=== PATIENT | female | born 1995 | race Caucasian/White ===

== ENCOUNTER 2021-03-23 01:53 | Emergency (ER) | payer BC ==
[2021-03-23] MEDS ORDERED: Sodium Chloride 0.9% 2.5 ML Syringe FLUSH PRN (02:27)
[2021-03-23] MEDS ORDERED: Sodium Chloride 0.9% 10 ML Syringe FLUSH PRN (02:27)
[2021-03-23] MEDS ORDERED: Sodium Chloride 0.9% 1,000 ML IV ONE (02:28)
--- NOTE | 2021-03-23 02:33 | EDM.PDOC ---
ED HPI GENERAL MEDICAL PROBLEM - General Chief Complaint: [employer]IT[employer] Problem Stated Complaint: MISCARRIAGE Time Seen by Provider: 03/23/21 02:12 - History of Present Illness INITIAL COMMENTS - FREE TEXT/NARRATIVE: History of present illness: [] About 2023 had a 2-day menstrual period which is care for her. She had a last normal 5 to 7-day. Near the end of December. She had an ultrasound the first week of January that showed gestational sac with no heartbeat. She had hCG levels which I can see in the chart 35,000 697 on the third 08 February. 93,062 on 24 February. 84,171 on 27 February. 12,811 on 14 March. For the last 2 nights she is bleeding rather heavily heavier than a period with clots. Today she is dizzy and feels weak. She has crampy abdominal pain that is moderately severe and intermittent. The patient is a Ab0. Ultrasound and blood counts are not available to me nor is her blood type. I have checked my record in the computer [employer]. 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 Review of systems: As per history of present illness and below otherwise all systems reviewed and negative. Past medical history: As per history of present illness and as reviewed below otherwise noncontributory. Surgical history: As per history of present illness and as reviewed below otherwise noncontributory. Social history: No reported history of drug or alcohol abuse. Family history: As per history of present illness and as reviewed below otherwise noncontributory. Physical exam: Constitutional - well developed, well-nourished and in no acute distress HEENT - normocephalic, no evidence of trauma - external nose and mouth normal - no mass in neck and no JVD - mucosae moist EYES - full EOM, PERRL, no icterus - no evidence of inflammation, injection, or drainage Respiratory - no respiratory distress, equal bilateral expansion, lungs clear to auscultation and no abnormal lung sounds Cardiovascular - Regular Rhythm with S1 and S2 appreciated and no murmur, gallop or rub. GI - abdomen soft without distension or organomegaly -tenderness suprapubic area and in the right lower quadrant. Musculoskeletal no gross deformity of long bones or joints - no tenderness, swelling or edema Neurologic - Alert and oriented times four - CN II-XII grossly intact - motor sensory and coordination symmetrically normal Psychiatric - appropriate mood and affect with normal thought content Hematologic - No petechiae or purpura - mucosa appropriate color and sclera not pale - normal nail bed color and refill Integument - no rash or evidence of trauma - normal turgor Diagnostics: [] Therapeutics: [] Impression: [] Plan: [] Definitive disposition and diagnosis as appropriate pending reevaluation and review of above. Lower Abdomen Pain Score (Numeric/FACES): 2 - Related Data Allergies Allergy/AdvReac Type Severity Reaction Status Date / Time codeine Allergy Hives Verified 03/23/21 02:07 Home Meds: Home Meds . [No Known Home Meds] 03/23/21 [History] Past Medical History - Past Health History Medical/Surgical History: Denies Medical/Surgical History HEENT History: Reports: None Cardiovascular History: Reports: None Respiratory History: Reports: None Gastrointestinal History: Reports: None Genitourinary History: Reports: None [employer]CHIT[employer] History: Reports: None Musculoskeletal History: Reports: None Neurological History: Reports: None Psychiatric History: Reports: None Endocrine/Metabolic History: Reports: None Hematologic History: Reports: None Immunologic History: Reports: None Oncologic (Cancer) History: Reports: None Dermatologic History: Reports: None - Past Surgical History Head Surgeries/Procedures: Reports: None HEENT Surgical History: Reports: None, Oral Surgery Cardiovascular Surgical History: Reports: None Endocrine Surgical History: Reports: None Musculoskeletal Surgical History: Reports: None, Other (See Below) Other Musculoskeletal Surgeries/Procedures:: closed elbow reduction Dermatological Surgical History: Reports: None Social & Family History - Family History Family Medical History: No Pertinent Family History - Caffeine Use Caffeine Use: Reports: Energy Drinks - Recreational Drug Use Recreational Drug Use: Yes Drug Use in Last 12 Months: Yes Recreational Drug Type: Reports: Marijuana/Hashish Recreational Drug Use Frequency: Socially ED ROS GENERAL - Review of Systems Review Of Systems: Comprehensive ROS is negative, except as noted in HPI. ED EXAM, GENERAL - Physical Exam Exam: See Below Free Text/Narrative:: my physical exam is in the HPI Course - Vital Signs Text/Narrative:: Patient's pain got little better in the emergency department. Patient has an ultrasound that shows that she has a fluid collection the size of an 8-week with no pole or sac and it is in the endocervical canal. Last Recorded V/S: Last Vital Signs Temp 36.2 C 03/23/21 02:07 Pulse 111 H 03/23/21 02:07 Resp 17 03/23/21 02:07 BP 110/60 03/23/21 02:07 Pulse Ox - Orders/Labs/Meds Orders: Active Orders 24 hr Category Date Time Status Sodium Chloride 0.9% [Saline Flush] Med 03/23/21 02:27 Active 10 ml FLUSH ASDIRECTED PRN Sodium Chloride 0.9% [Saline Flush] Med 03/23/21 02:27 Active 2.5 ml FLUSH ASDIRECTED PRN Saline Lock Insert [OM.PC] Stat Oth 03/23/21 02:27 Ordered Medication Orders Sodium Chloride (Sodium Chloride 0.9% 10 Ml Syringe) 10 ml FLUSH ASDIRECTED PRN PRN Reason: Keep Vein Open Last Admin: 03/23/21 02:43 Dose: 10 ml Documented by: CHOLO Sodium Chloride (Sodium Chloride 0.9% 2.5 Ml Syringe) 2.5 ml FLUSH ASDIRECTED PRN PRN Reason: Keep Vein Open Last Admin: 03/23/21 02:43 Dose: 2.5 ml Documented by: CHOLO Labs: Laboratory Tests 03/23/21 03/23/21 03/23/21 Range/Units 02:40 02:40 02:47 WBC 14.18 H (4.0-11.0) K/uL RBC 4.30 (4.30-5.90) M/uL Hgb 11.9 L (12.0-16.0) g/dL Hct 35.5 L (36.0-46.0) % MCV 82.6 (80.0-98.0) fL MCH 27.7 (27.0-32.0) pg MCHC 33.5 (31.0-37.0) g/dL RDW Std Deviation 39.9 (28.0-62.0) fl RDW Coeff of Nicolasa 13 (11.0-15.0) % Plt Count 261 (150-400) K/uL MPV 9.40 (7.40-12.00) fL Neut % (Auto) 67.5 (48.0-80.0) % Lymph % (Auto) 22.4 (16.0-40.0) % [place] % (Auto) 8.7 (0.0-15.0) % Eos % (Auto) 1.3 (0.0-7.0) % Baso % (Auto) 0.1 (0.0-1.5) % Neut # (Auto) 9.6 H (1.4-5.7) K/uL Lymph # (Auto) 3.2 H (0.6-2.4) K/uL [place] # (Auto) 1.2 H (0.0-0.8) K/uL Eos # (Auto) 0.2 (0.0-0.7) K/uL Baso # (Auto) 0.0 (0.0-0.1) K/uL Nucleated RBC % 0.0 /100WBC Nucleated RBCs # 0 K/uL Sodium 140 (136-145) mmol/L Potassium 3.6 (3.5-5.1) mmol/L Chloride 106 (98-107) mmol/L Carbon Dioxide 22.7 (21.0-32.0) mmol/L BUN 11 (7.0-18.0) mg/dL Creatinine 0.6 (0.6-1.0) mg/dL Est Cr Clr Drug Dosing 141.81 mL/min Estimated GFR (MDRD) > 60.0 ml/min Glucose 112 H (74-106) mg/dL Calcium 8.5 (8.5-10.1) mg/dL HCG, Quant 1165.0 mIU/mL Blood Type O POSITIVE Antibody Screen NEGATIVE Meds: Medications Generic Name Dose Route Start Last Admin Trade Name Freq PRN Reason Stop Dose Admin Sodium Chloride 10 ml 03/23/21 02:27 03/23/21 02:43 Sodium Chloride 0.9% 10 Ml Syringe FLUSH 10 ml ASDIRECTED PRN Administration Keep Vein Open Sodium Chloride 2.5 ml 03/23/21 02:27 03/23/21 02:43 Sodium Chloride 0.9% 2.5 Ml Syringe FLUSH 2.5 ml ASDIRECTED PRN Administration Keep Vein Open Discontinued Medications Generic Name Dose Route Start Last Admin Trade Name Freq PRN Reason Stop Dose Admin Sodium Chloride 1,000 mls @ 500 mls/hr 03/23/21 02:28 03/23/21 02:43 Normal Saline IV 03/23/21 04:27 500 mls/hr .Bolus ONE Administration Departure - Departure Time of Disposition: 04:37 Disposition: Home, Self-Care 01 Condition: Good Clinical Impression: Incomplete - Discharge Information Instructions: Incomplete Miscarriage Referrals: Elif Friedman CNM [Primary Care Provider] - Forms: ED Department Discharge Additional Instructions: Your blood type is O+. Return or contact your cornetist if you have a high fever, bleeding to the point of feeling you will pass out, heavy bleeding, unbearable pain. [facility] [address] [place] [id number] [facility] [address] [place] [id number] The following information is given to patients seen in the emergency department who are being discharged to home. This information is to outline your options for follow-up care. We provide all patients seen in our emergency department with a follow-up referral. The need for follow-up, as well as the timing and circumstances, are variable depending upon the specifics of your emergency department visit. If you don't have a primary care physician on staff, we will provide you with a referral. We always advise you to contact your personal physician following an emergency department visit to inform them of the circumstance of the visit and for follow-up with them and/or the need for any referrals to a consulting specialist. The emergency department will also refer you to a specialist when appropriate. This referral assures that you have the opportunity for follow-up care with a specialist. All of these measure are taken in an effort to provide you with optimal care, which includes your follow-up. Under all circumstances we always encourage you to contact your private physician who remains a resource for coordinating your care. When calling for follow-up care, please make the office aware that this follow-up is from your recent emergency room visit. If for any reason you are refused follow-up, please contact the [facility] Emergency Department at and asked to speak to the emergency department charge nurse. Sepsis Event Note (ED) - Evaluation Sepsis Screening Result: No Definite Risk - Focused Exam Vital Signs: Vital Signs Temp Pulse Resp BP 03/23/21 02:07 36.2 C 111 H 17 110/60 - My Orders Last 24 Hours: My Active Orders 03/23/21 02:27 Sodium Chloride 0.9% [Saline Flush] 10 ml FLUSH ASDIRECTED PRN Sodium Chloride 0.9% [Saline Flush] 2.5 ml FLUSH ASDIRECTED PRN Saline Lock Insert [OM.PC] Stat - Assessment/Plan Last 24 Hours: My Active Orders 03/23/21 02:27 Sodium Chloride 0.9% [Saline Flush] 10 ml FLUSH ASDIRECTED PRN Sodium Chloride 0.9% [Saline Flush] 2.5 ml FLUSH ASDIRECTED PRN Saline Lock Insert [OM.PC] Stat
[2021-03-23 03:47] LABS: BLOOD UREA NITROGEN,BUN 11 mg/dL (7.0-18.0); CARBON DIOXIDE,CO2 22.7 mmol/L (21.0-32.0); CHLORIDE,CL 106 mmol/L (98-107); GLUCOSE RANDOM 112 mg/dL (74-106); POTASSIUM,K 3.6 mmol/L (3.5-5.1); SODIUM,NA 140 mmol/L (136-145)
--- NOTE | 2021-03-23 03:57 | US ---
INDICATION: Vaginal bleeding TECHNIQUE: Ultrasound OB pelvis transvaginal. Real time chinchilla scale imaging of the pelvis was performed. COMPARISON: None FINDINGS: Gestational Sac: No definite intrauterine gestational sac or pole is identified. There is an oblong anechoic fluid collection present within the endocervical canal. It measures 3.2 x 0.9 cm. Uterus: 11 x 6.8 x 6.7 cm. The visualized myometrium appears normal. The endometrium is thickened and heterogeneous in appearance, measuring 20 mm. Pelvis: The ovaries are of normal size. Arterial blood flow seen within both ovaries. No adnexal masses are identified. Trace pelvic ascites noted. IMPRESSION: 1. There is an oblong anechoic fluid collection present within the endocervical canal. If this represents a gestational sac, an impending spontaneous should be considered. 2. Clinical and imaging follow up is recommended. Dictated by Bala Jenkins MD @ 03/23/2021 3:56:26 AM Dictated by: Bala Jenkins MD @ 03/23/2021 03:56:38 (Electronically Signed)
[2021-03-23 04:42] VITALS: BP 134/78; PULSE 87
== END 2021-03-23 04:42 | disposition home or self-care (01) ==
LOC: MW.ED 01:53
DX: O03.4 Incomplete spontaneous abortion without complication (principal); Z88.5 Allergy status to narcotic agent
CPT/HCPCS: 36415; 76801; 80048; 84702; 85025; 86850; 86900; 86901; 99284; J7030; 99283

== ENCOUNTER 2023-11-16 01:56 | Inpatient (IN) | payer BC ==
[2023-11-16] MEDS ORDERED: Misoprostol 200 MCG Tab PO PRN (03:33)
[2023-11-16] MEDS ORDERED: Lidocaine 1% 50 ML MDV INJECT PRN (03:33)
[2023-11-16] MEDS ORDERED: Sodium Chloride 0.9% 10 ML Syringe FLUSH PRN (03:33)
[2023-11-16] MEDS ORDERED: Terbutaline 1 MG/ML SDV SUBCUT PRN (03:33)
[2023-11-16] MEDS ORDERED: Carboprost Tromethamine 250 MCG/1 mL Vial IM PRN (03:33)
[2023-11-16] MEDS ORDERED: Sodium Chloride 0.9% 20 ML SDV IV PRN (03:33)
[2023-11-16] MEDS ORDERED: Methylergonovine 0.2 MG/1 ML Amp IM PRN (03:33)
[2023-11-16] MEDS ORDERED: Sodium Chloride 0.9% 2.5 ML Syringe FLUSH PRN (03:33)
[2023-11-16] MEDS ORDERED: Water For Irrigation,Sterile 1,000 ML Container IRR PRN (03:33)
[2023-11-16] MEDS ORDERED: Misoprostol 25 MCG (1/4 of 100 MCG) Tab VAG PRN ×2 (03:33)
[2023-11-16] MEDS ORDERED: Tranexamic Acid IN NACL,ISO-OS 1,000 MG in Premix Bag 1 BAG IV PRN ×2 (03:33)
[2023-11-16] MEDS ORDERED: Nalbuphine 10 MG/0.5 ML Syringe IVPUSH PRN (03:33)
[2023-11-16] MEDS ORDERED: Ondansetron 4 MG/2 ML SDV IVPUSH PRN (03:39)
[2023-11-16] MEDS ORDERED: Oxytocin/0.9 % Sodium Chloride 30 UNIT/500 ML BAG IV SCH ×2 (03:45→17:30)
[2023-11-16] MEDS: Lactated Ringers 1,000 ML IV SCH ×3 (04:16→14:03)
[2023-11-16 05:00] LABS: HEMATOCRIT 37.1 % (37.0-47.0); HEMOGLOBIN 12.7 g/dL (12.0-16.0); MEAN CORPUSCULAR HEMOGLOBIN 28.1 pg (28.0-32.0); MEAN CORPUSCULAR HGB CONC 34.2 g/dL (32.0-36.0); MEAN CORPUSCULAR VOLUME 82.1 fL (83.0-99.0); MEAN PLATELET VOLUME 10.7 fL (9.4-12.3); PLATELET COUNT,PLT 258 K/uL (150-400); RED BLOOD CELL COUNT 4.52 M/uL (4.10-5.30)
[2023-11-16] MEDS ORDERED: Ropivacaine HCl/PF 200 ML ONE (13:36)
[2023-11-16] MEDS ORDERED: ePHEDrine 50 MG/ML SDV IVPUSH PRN ×2 (15:21)
[2023-11-16] MEDS ORDERED: Phenylephrine HCl 0.5 MG/5 ML AMP IVPUSH PRN (15:21)
[2023-11-16] MEDS ORDERED: Ropivacaine HCl/PF 400 MG in Premix Bag 1 BAG EPIDUR SCH (15:30)
[2023-11-17] MEDS ORDERED: Lanolin 100% Cream 7 GM Tube TOP PRN (00:06)
[2023-11-17] MEDS ORDERED: Benzocaine/Menthol 20%-0.5% Spray 78 GM Cannister TOP PRN (00:06)
[2023-11-17] MEDS ORDERED: Witch Hazel Medicated Pads 40/Jar TOP PRN (00:06)
[2023-11-17] MEDS: Acetaminophen 500 MG Tab PO PRN ×3 (01:08→13:30)
[2023-11-17] MEDS: Ibuprofen 800 MG Tab PO PRN ×2 (04:43→11:33)
[2023-11-17 05:55] LABS: HEMATOCRIT 34.5 % (37.0-47.0); HEMOGLOBIN 12.1 g/dL (12.0-16.0)
[2023-11-17] MEDS: Docusate Sodium 100 MG Cap PO PRN (18:21)
[2023-11-18] MEDS: Docusate Sodium 100 MG Cap PO PRN (08:04)
[2023-11-18] MEDS: Ibuprofen 800 MG Tab PO PRN (14:11)
[2023-11-18 16:11] VITALS: BP 122/65; PULSE 82
== END 2023-11-18 17:50 | disposition home or self-care (01) | DRG 560 ==
LOC: MW.OBCHECK 01:56 → MW.OB 01:57 → MW.OBCHECK 22:22 → MW.OB 22:31
PROVIDERS: ADMIT Obstetrics & Gynecology; ATTEND Obstetrics & Gynecology Obstetrics
PROC: 10E0XZZ Delivery of Products of Conception, External Approach (ICD-10-PCS; principal; 2023-11-16)
PROC: 3E0P7VZ Introduction of Hormone into Female Reproductive, Via Natural or Artificial Opening (ICD-10-PCS; 2023-11-16)
PROC: 3E0R3BZ Introduction of Anesthetic Agent into Spinal Canal, Percutaneous Approach (ICD-10-PCS; 2023-11-16)
PROC: 00HU33Z Insertion of Infusion Device into Spinal Canal, Percutaneous Approach (ICD-10-PCS; 2023-11-16)
PROC: 0HQ9XZZ Repair Perineum Skin, External Approach (ICD-10-PCS; 2023-11-16)
DX: O42.02 Full-term premature rupture of membranes, onset of labor within 24 hours of rupture (principal); O70.0 First degree perineal laceration during delivery; Z37.0 Single live birth; Z3A.38 38 weeks gestation of pregnancy
CPT/HCPCS: 36415; 51702; 59025; 59409; 84112; 85014; 85018; 85027; 86592; 86850; 86900; 86901; A9270-GY; J2300; J2590; J2795; J7120

== ENCOUNTER 2025-05-14 22:42 | Inpatient (IN) | payer BC ==
[2025-05-15] MEDS ORDERED: Sodium Chloride 0.9% 2.5 ML Syringe FLUSH PRN (01:24)
[2025-05-15] MEDS ORDERED: Sodium Chloride 0.9% 10 ML Syringe FLUSH PRN (01:24)
[2025-05-15] MEDS ORDERED: Misoprostol 200 MCG Tab PO PRN (01:24)
[2025-05-15] MEDS ORDERED: Ondansetron 4 MG/2 ML SDV IVPUSH PRN (01:24)
[2025-05-15] MEDS ORDERED: Carboprost Tromethamine 250 MCG/1 mL Vial IM PRN (01:24)
[2025-05-15] MEDS ORDERED: Sodium Chloride 0.9% 20 ML SDV IV PRN (01:24)
[2025-05-15] MEDS ORDERED: Lidocaine 1% 50 ML MDV INJECT PRN (01:24)
[2025-05-15] MEDS ORDERED: Methylergonovine 0.2 MG/1 ML Amp IM PRN (01:24)
[2025-05-15] MEDS ORDERED: Water For Irrigation,Sterile 1,000 ML Container IRR PRN (01:24)
[2025-05-15] MEDS: Butorphanol 1 MG/ML SDV IVPUSH PRN (01:30)
[2025-05-15] MEDS ORDERED: Oxytocin/0.9 % Sodium Chloride 30 UNIT/500 ML BAG IV SCH ×2 (01:30→02:30)
[2025-05-15] MEDS ORDERED: Lactated Ringers 1,000 ML IV SCH (01:30)
[2025-05-15 01:56] LABS: HEMATOCRIT 37.5 % (37.0-47.0); HEMOGLOBIN 12.7 g/dL (12.0-16.0); MEAN CORPUSCULAR HEMOGLOBIN 27.8 pg (28.0-32.0); MEAN CORPUSCULAR HGB CONC 33.9 g/dL (32.0-36.0); MEAN CORPUSCULAR VOLUME 82.1 fL (83.0-99.0); MEAN PLATELET VOLUME 10.3 fL (9.4-12.3); PLATELET COUNT,PLT 238 K/uL (150-400); RED BLOOD CELL COUNT 4.57 M/uL (4.10-5.30); WHITE BLOOD CELL COUNT,WBC 14.27 K/uL (3.9-11.3)
[2025-05-15] MEDS: Oxytocin 10 Units/1 ML SDV IM ONE ×2 (02:38→02:45)
[2025-05-15] MEDS ORDERED: Lanolin 100% Cream 7 GM Tube TOP PRN (03:07)
[2025-05-15] MEDS ORDERED: oxyCODONE 5 MG Tab PO PRN (03:07)
[2025-05-15] MEDS: Witch Hazel Medicated Pads 40/Jar TOP PRN (03:33)
[2025-05-15] MEDS: Ibuprofen 800 MG Tab PO PRN (03:34)
[2025-05-15] MEDS: Hydrocortisone 2.5% Crm 30 GM Tube TOP PRN (03:34)
[2025-05-15] MEDS: Docusate Sodium 100 MG Cap PO PRN (03:34)
[2025-05-15] MEDS: Acetaminophen 500 MG Tab PO PRN (03:35)
[2025-05-15] MEDS: Benzocaine/Menthol 20%-0.5% Spray 78 GM Cannister TOP PRN (03:37)
[2025-05-16 05:52] LABS: HEMATOCRIT 35.8 % (37.0-47.0); HEMOGLOBIN 11.9 g/dL (12.0-16.0)
[2025-05-16 11:54] VITALS: BP 110/69; PULSE 85
== END 2025-05-16 13:05 | disposition home or self-care (01) | DRG 560 ==
LOC: MW.OBCHECK 22:42 → MW.OB 22:42 → MW.OBCHECK 05-15 01:24 → MW.OB 05-15 01:24 → OBSVTOIN 05-15 02:23 → MW.OB 05-15 05:47
PROVIDERS: ADMIT Obstetrics & Gynecology Obstetrics; ATTEND Obstetrics & Gynecology Obstetrics
PROC: 10E0XZZ Delivery of Products of Conception, External Approach (ICD-10-PCS; principal; 2025-05-15)
DX: O80 Encounter for full-term uncomplicated delivery (principal); Z3A.39 39 weeks gestation of pregnancy; Z37.0 Single live birth; Z91.040 Latex allergy status; Z88.8 Allergy status to other drugs, medicaments and biological substances; Z79.899 Other long term (current) drug therapy; Z98.890 Other specified postprocedural states
CPT/HCPCS: 36415; 84112; 85014; 85018; 85027; 86592; 86850; 86900; 86901; A9270-GY; J0595; J2590